=== PATIENT | female | born 1980 | race Caucasian/White ===

== ENCOUNTER → 2016-12-15 | Outpatient (CLI) | payer OTHER | LOC: FIMAGING 09:40 | PROVIDERS: ATTEND Family Medicine | DX: R16.0 Hepatomegaly, not elsewhere classified (principal) ==

== ENCOUNTER → 2016-12-21 | Outpatient (CLI) | payer OTHER ==
[~2016-12-21] MED LIST: GADOBUTROL 10 ML VIAL IVP ONE
== END ==
LOC: FIMAGING 12:41
PROVIDERS: ATTEND Family Medicine
DX: R93.2 Abnormal findings on diagnostic imaging of liver and biliary tract (principal)
CPT/HCPCS: A9585

== ENCOUNTER 2017-02-26 22:06 | Emergency (ER) | payer OTHER ==
[2017-02-26 22:14] VITALS: BP 130/88; PULSE 77; RESP 16; TEMP 98.4; O2SAT 98
--- NOTE | 2017-02-26 22:30 | EDPHY ---
H & P Time Seen by Provider: 02/26/17 22:18 HPI/ROS: CHIEF COMPLAINT: Retained tampon HISTORY OF PRESENT ILLNESS: 36-year-old female complaining of possible retained tampon since 4:00 four p.m. today. She felt an area of abnormality on her right vaginal wall. No fetid odor. No abdominal pain. No back or flank pain. No fever no chills REVIEW OF SYSTEMS: A ten point review of systems was performed and is negative with the exception of the items mentioned in the HPI PHYSICAL EXAM (Prior to examination, patient consented to physical exam, hands were washed and my usual and customary physical exam procedures followed) 1) GENERAL: Well-developed, well-nourished, alert and oriented. Appears to be in no acute distress. 2) HEAD: Normocephalic 3) HEENT: sclera anicteric 4) LUNGS: Breathing comfortably. 5)PELVIC (with female nurse [Giuliana at bedside): Normal female external genitalia, no lesions visualized. There is an area of hypertrophic tissue on the right vaginal rugae With no visible lesion. Speculum examination reveals no foreign body, no tampon. Smoking Status: Never smoked Constitutional: Initial Vital Signs Temperature (C) 36.9 C 02/26/17 22:10 Heart Rate 77 02/26/17 22:10 Respiratory Rate 16 02/26/17 22:10 Blood Pressure 130/88 H 02/26/17 22:10 O2 Sat (%) 98 02/26/17 22:10 O2 Delivery Mode Room Air Allergies/Adverse Reactions: No Known Allergies Allergy (Unverified 02/26/17 22:14) Home Medications: Medication Instructions Recorded NK [No Known Home Meds] 02/26/17 MDM/Departure - [facility] ED Course/Re-evaluation: There is no evidence of retained tampon in this patient. There is an area of hypertrophic tissue on the right vaginal rugae a which the patient states that she was feeling and thought that this was the retained tampon. The specific etiology of this hypertrophic tissue is not completely clear. However, I have recommended follow-up with OBGYN for further evaluation, possible biopsy. At this time there is no evidence of retained tampon or other foreign body. - Depart Disposition: Home, Routine, Self-Care Clinical Impression: Possible retained tampon Condition: Good Instructions: Vaginal Foreign Body (ED) Referrals: Wendy Alberto MD [Medical Doctor] - 5-7 days, call for appt. (Dr. Wendy Gaspar is in OBGYN)
== END 2017-02-26 22:45 | disposition home or self-care (01) ==
DX: Z03.89 Encounter for observation for other suspected diseases and conditions ruled out (principal)

== ENCOUNTER → 2017-03-29 | Outpatient (CLI) | payer OTHER | LOC: FIMAGING 06:50 | PROVIDERS: ATTEND Internal Medicine Gastroenterology | DX: K76.89 Other specified diseases of liver (principal) | CPT/HCPCS: A9585 ==